=== PATIENT | male | born 2005 | race Hispanic/Latino ===

== ENCOUNTER 2024-06-09 09:04 | Emergency (ER) | payer OTHER ==
[2024-06-09 09:49] LABS: Absolute Basophils 0.1 K/uL (0-0.5); Absolute Eosinophils 0.1 K/uL (0-0.5); Absolute Lymphocytes (CBC) 2.6 K/uL (0.7-4.9); Absolute Monocytes 1.3 K/uL (0.1-1.3); Absolute Neutrophil 11.4 K/uL (1.8-8.0); Basophils % 0.6 % (0-1.3); Eosinophils % 0.9 % (0-4.4); Hematocrit 43.8 % (39.6-49.0); Hemoglobin 14.4 g/dL (13.6-17.9); Lymphocytes % 16.8 % (15.3-44.8); MCH 32.6 pg (27.0-35.0); MCHC 32.9 g/dL (32.0-36.0); MCV 98.9 fL (80-100); MPV 9.3 fL (7.6-11.3); Monocytes % 8.1 % (3.3-12.3); Neutrophils % 73.6 % (41.7-73.7); Platelets 223 thou/uL (152-406); RBC Red Blood Cell Count 4.43 M/uL (4.33-5.43); Red Cell Distribution Width 13.4 % (12.1-15.2)
[2024-06-09 10:09] LABS: Anion Gap 5.3 mEq/L (5.0-15.0); Potassium 4.3 mEq/L (3.5-5.1); Troponin High Sensitivity 16.7 pg/mL (<58.9)
--- NOTE | 2024-06-09 10:19 | RAD REPORT ---
EXAM: CT Head Brain Wo Cont HISTORY: syncope, possible seizure COMPARISON: None TECHNIQUE: Multiple contiguous axial images were obtained for a CT of the brain without contrast. Sag ittal and coronal reformats were performed. One or more of the following dose reduction techniques were used: Automated exposure control, adjus tment of the mA and kV according to patient size, and iterative reconstruction. Unless otherwise specified, incidental findings do not require dedicated imaging follow-up. FINDINGS: No evidence of hydrocephalus, intracranial hemorrhage, or extra-axial fluid collection. The brain is normal in morphology. The calvarium is intact. The visualized paranasal sinuses and mastoid air cells are essentially clear . IMPRESSION: No evidence of acute intracranial abnormality.
--- NOTE | 2024-06-09 10:28 | ER ---
Nurse's Notes [facility] Name: Abdulkadir Maldonado Age: 19 yrs Sex: Male : 2005 Arrival Date: 06/09/2024 Time: 09:04 Bed 5 Private MD: Diagnosis: Syncope Presentation: 06/09 09:10 Chief complaint: Patient states: "I passed out". Bruising noted to right side of face. aa5 09:10 Coronavirus screen: At this time, the client does not indicate any symptoms associated aa5 with coronavirus-19. Ebola Screen: Patient denies travel to an Ebola-affected area in the 21 days before illness onset. Initial Sepsis Screen: Does the patient meet any 2 criteria? No. Patient's initial sepsis screen is negative. Does the patient have a suspected source of infection? No. Patient's initial sepsis screen is negative. Risk Assessment: Do you want to hurt yourself or someone else? Patient reports no desire to harm self or others. Onset of symptoms was June 09, 2024. 09:10 Acuity: ASHLEY 3 aa5 09:10 Method Of Arrival: Law Enforcement: [place] [facility] aa5 Historical: - Allergies: 09:10 No Known Allergies; aa5 - Home Meds: 09:10 None [Active]; aa5 - PMHx: 09:10 None; aa5 - PSHx: 09:10 None; aa5 - Immunization history:: Adult Immunizations up to date. - Infectious Disease History:: Denies. - Social history:: Smoking status: Patient denies any tobacco usage or history of. Screenin:10 [facility] ED Fall Risk Assessment (Adult) History of falling in the last 3 months, aa5 including since admission Yes- physiologic fall (2 pts) Confusion or Disorientation No (0 pts) Intoxicated or Sedated No (0 pts) Impaired Gait No (0 pts) Mobility Assist Device Used No (0 pt) Altered Elimination No (0 pt) Score/Fall Risk Level 0 - 2 = Low Risk Oriented to surroundings, Maintained a safe environment, Educated pt \\T\\ family on fall prevention, incl call for assistance when getting out of bed. Abuse screen: Denies threats or abuse. Nutritional screening: No deficits noted. Tuberculosis screening: No symptoms or risk factors identified. Assessment: 09:10 General: Appears comfortable, Behavior is calm, cooperative. Pain: Complains of pain in aa5 face Pain currently is 2 out of 10 on a pain scale. Quality of pain is described as aching. Neuro: Level of Consciousness is awake, alert, obeys commands, Oriented to person, place, time, situation, Appropriate for age. Cardiovascular: Heart tones S1 S2 present Rhythm is regular. Respiratory: Airway is patent Respiratory effort is even, unlabored, Respiratory pattern is regular, symmetrical. GI: Abdomen is non-distended, Abd is soft and non tender X 4 quads. Patient currently denies nausea, vomiting. : No signs and/or symptoms were reported regarding the genitourinary system. EENT: No signs and/or symptoms were reported regarding the EENT system. Derm: Skin is pink, warm \\T\\ dry. Mild swelling noted to right eyebrow and right cheek with purple bruising noted. Musculoskeletal: restrained by handcuffs and feet shackles by [facility] guards at bedside. 09:10 Injury Description: Pt states "I think I passed out, I remember I was walking in the aa5 hallway and next thing I know I woke up in my cell". 10:53 Reassessment: Patient is alert, oriented x 3, equal unlabored respirations, skin aa5 warm/dry/pink. Vital Signs: 09:10 BP 110 / 77; Pulse 78; Resp 17 S; Temp 97.8(TE); Pulse Ox 100% on R/A; aa5 10:30 BP 106 / 65; Pulse 72; Resp 15 S; Temp 97.6(TE); Pulse Ox 99% on R/A; aa5 ED Course: 09:07 Patient arrived in ED. ec2 09:07 Gregg Bob MD is Attending Physician. ec2 09:10 Arm band placed on Patient placed in an exam room, on a stretcher. aa5 09:10 Patient has correct armband on for positive identification. Bed in low position. Call aa5 light in reach. Side rails up X 1. [employer] guards at bedside. 09:10 Client placed on continuous cardiac and pulse oximetry monitoring. NIBP monitoring aa5 applied. hygiene assistant on. Pulse ox on. NIBP on. 09:10 Provided Education on: use of call light . aa5 09:14 Blank Mims, RN is Primary Nurse. aa5 09:30 CT Head Brain wo Cont In Process Unspecified. EDMS 09:31 XRAY Chest (1 view) In Process Unspecified. EDMS 09:40 Initial lab(s) drawn, by me, sent to lab. Inserted saline lock: 22 gauge in right aa5 antecubital area, using aseptic technique. Blood collected. Flushed with 10 mL NS. 09:54 Triage completed. aa5 10:00 EKG done, by ED staff, reviewed by Gregg Bob MD. aa5 10:53 IV discontinued, intact, bleeding controlled, No redness/swelling at site. Pressure aa5 dressing applied. 10:53 No provider procedures requiring assistance completed. aa5 Administered Medications: No medications were administered Medication: 10:16 VIS not applicable for this client. aa5 Outcome: 10:28 Discharge ordered by . ec2 10:55 Discharged to [place] [facility] unit aa5 10:55 Condition: stable 10:55 Discharge instructions given to patient, Instructed on discharge instructions, follow up and referral plans. Demonstrated understanding of instructions, follow-up care, 10:56 Patient left the ED. ss Signatures: Dispatcher [employer] Blank Patel, RN RN aa5 Mercedez Alatorre RN RN ss Gregg Bob MD MD ec2 Corrections: (The following items were deleted from the chart) 10:15 09:10 Musculoskeletal: Range of motion: intact in all extremities, aa5 aa5 11:08 09:10 [facility] ED Fall Risk Assessment (Adult) History of falling in the last 3 months, aa5 including since admission No falls in past 3 months (0 pts) Confusion or Disorientation No (0 pts) Intoxicated or Sedated No (0 pts) Impaired Gait No (0 pts) Mobility Assist Device Used No (0 pt) Altered Elimination No (0 pt) Score/Fall Risk Level 0 - 2 = Low Risk Oriented to surroundings, Maintained a safe environment, Educated pt \\T\\ family on fall prevention, incl call for assistance when getting out of bed, aa5
--- NOTE | 2024-06-09 10:28 | EDPHYS ---
Physician Documentation [facility] Name: Abdulkadir Maldonado Age: 19 yrs Sex: Male : 2005 Arrival Date: 06/09/2024 Time: 09:04 Bed 5 Private MD: ED Physician Gregg Bob HPI: 06/09 09:15 This 19 yrs old Male presents to ER via Unassigned with complaints of syncope. ec2 09:15 Patient arrives today for evaluation of a syncopal episode. Patient reports that he had ec2 syncopized in hit the back of his head. No blood thinners, no medical problems, no seizures. States that he had a similar episode in the past however no underlying cause identified. Patient reports no chest pain, no abdominal pain, no nausea or vomiting, no recent illnesses.. Historical: - Allergies: 09:10 No Known Allergies; aa5 - Home Meds: 09:10 None [Active]; aa5 - PMHx: 09:10 None; aa5 - PSHx: 09:10 None; aa5 - Immunization history:: Adult Immunizations up to date. - Infectious Disease History:: Denies. - Social history:: Smoking status: Patient denies any tobacco usage or history of. ROS: 09:15 Constitutional: as per hpi ec2 Exam: 09:15 Constitutional: GEN: NAD Head: atraumatic Eyes: EOMI Ears: External ears are ec2 normal. CV: regular rate LUNGS: no respiratory distress ABD: non-distended SKIN: Contusion noted to the occiput. MSK: no evidence of trauma Vital Signs: 09:10 BP 110 / 77; Pulse 78; Resp 17 S; Temp 97.8(TE); Pulse Ox 100% on R/A; aa5 10:30 BP 106 / 65; Pulse 72; Resp 15 S; Temp 97.6(TE); Pulse Ox 99% on R/A; aa5 MDM: 09:08 Medical Screening Exam initiated ec2 09:15 Data reviewed: vital signs, nurses notes. ED course: Patient arrives today for ec2 evaluation of a syncopal episode. Examination remarkable for well-appearing nontoxic individuals otherwise in no acute distress with a reassuring neurologic examination with a contusion noted on the back of his head. Will obtain lab work, EKG, chest x-ray as well as CT scan of the head. Differential includes syncope, seizure, electrolyte disturbances, anemia, arrhythmia.. 10:01 ED course: EKG independently reviewed and interpreted by me, shows normal sinus rhythm, ec2 rate of 65, no acute ST segment elevations, intervals are nonactionable. . 10:13 ED course: Metabolic profile is unrevealing, CBC shows slight leukocytosis. Troponin is ec2 within normal ranges. . 10:27 ED course: Chest x-ray independently reviewed and interpreted by me, shows no acute ec2 intrathoracic process. CT scan of the head shows no acute intracranial process. On reassessment patient is well-appearing no acute distress. Will discharge home have the patient follow-up PCP. Return precautions given.. 06/09 09:08 Order name: Basic Metabolic Panel; Complete Time: 10:13 ec2 06/09 09:08 Order name: CBC with Diff; Complete Time: 10:13 ec2 06/09 09:08 Order name: Troponin HS; Complete Time: 10:13 ec2 06/09 09:08 Order name: XRAY Chest (1 view); Complete Time: 10:40 ec2 06/09 09:08 Order name: CT Head Brain wo Cont; Complete Time: 10:27 ec2 06/09 09:08 Order name: Cardiac monitoring; Complete Time: 09:52 ec2 06/09 09:08 Order name: EKG - Nurse/Tech; Complete Time: 10:05 ec2 06/09 09:08 Order name: IV Saline Lock; Complete Time: 09:52 ec2 06/09 09:08 Order name: Labs collected and sent; Complete Time: 09:52 ec2 06/09 09:08 Order name: O2 Per Protocol; Complete Time: 09:52 ec2 06/09 09:08 Order name: O2 Sat Monitoring; Complete Time: 09:52 ec2 Administered Medications: No medications were administered Disposition Summary: 06/09/24 10:28 Discharge Ordered Notes: Location: Home ec2 Condition: Stable ec2 Diagnosis - Syncope ec2 Followup: ec2 - With: Private Physician - When: - Reason: Re-evaluation by your physician Discharge Instructions: - Discharge Summary Sheet ec2 - Syncope, [id number] ec2 Forms: - Medication Reconciliation Form ec2 - Antibiotic Education ec2 - Prescription Opioid Use ec2 - Patient Portal Instructions ec2 - Leadership Thank You Letter ec2 Signatures: Dispatcher [employer] Blank Patel, RN RN aa5 Gregg Bob MD MD ec2 Corrections: (The following items were deleted from the chart) : 09:08 Chest Single View+RAD.[email or web address].[email or web address] ordered. EDMS EDMS : 09:09 Head Brain Wo Cont+CT.RAD.[email or web address] ordered. EDMS EDMS
--- NOTE | 2024-06-09 10:33 | RAD REPORT ---
EXAMINATION: ONE VIEW CHEST XR CLINICAL INDICATION: Male, 19 years old.,syncope TECHNIQUE: Frontal chest projection is submitted. Examination is limited by patient positioning and t echnique. COMPARISON: No prior exam. FINDINGS: The lungs are well inflated and clear. No pneumothorax or sizable effusion. The heart is normal in s ize. Mediastinal contours are unremarkable. IMPRESSION: No acute intrathoracic abnormalities.
[2024-06-09 12:24] VITALS: BP 110/77; TEMP 97.8; O2SAT 100
--- NOTE | 2024-06-12 12:05 | EKG ---
Test Date: 2024-06-09 Test Time: 09:59:31 Rheumatology Nurse: N[place]ON MEASUREMENT RESULTS: Intervals: Rate: 65 TN: 166 QRSD: 84 QT: 364 QTc: 378 [place]: P: 48 TN: 166 QRS: 75 T: 46 INTERPRETIVE STATEMENTS: Normal sinus rhythm Normal ECG No previous ECG available for comparison Electronically Signed On 06-12-24 12:02:14 PHARMACY TECH CUSTOMER SERVICE by Seven Ewing
== END 2024-06-09 10:56 | disposition home or self-care (01) ==
LOC: ER 09:04
DX: R55 Syncope and collapse (principal)
CPT/HCPCS: 36415; 70450; 71045; 80048; 84484; 85025; 93005; 99284